=== PATIENT | female | born 1935 | race Caucasian/White ===

== ENCOUNTER 2018-11-28 08:38 | Emergency (ER) | payer MEDICARE, MEDICAID ==
[~2018-11-28] VITALS: Ht 167.6 cm; Wt 62.3 kg
[~2018-11-28 08:38] MED LIST: ATEN50TA2 PO; LEVO75TA7 PO; METH2.5T PO; RIZA10TA24 PO; VERA120T9 PO
--- NOTE | 2018-11-28 09:10 | NUR ---
pt has multiple skin abrasions to fingers and on her right elbow. superficial
[2018-11-28] MEDS ORDERED: HYDROcodone/acetaminophen 10/325mg tab PO ONE (11:40)
[2018-11-28] MEDS ORDERED: HYDR-3965 PO (11:53)
[2018-11-28 12:16] VITALS: BP 153/84
== END 2018-11-28 12:17 | disposition home or self-care (01) ==
LOC: ER 08:38
DX: S32.591A Other specified fracture of right pubis, initial encounter for closed fracture (principal); S32.511A Fracture of superior rim of right pubis, initial encounter for closed fracture; S09.90XA Unspecified injury of head, initial encounter; S50.311A Abrasion of right elbow, initial encounter; S60.511A Abrasion of right hand, initial encounter; G43.909 Migraine, unspecified, not intractable, without status migrainosus; I10 Essential (primary) hypertension; M06.9 Rheumatoid arthritis, unspecified; Z60.2 Problems related to living alone; Z79.899 Other long term (current) drug therapy; Z88.1 Allergy status to other antibiotic agents; W01.10XA Fall on same level from slipping, tripping and stumbling with subsequent striking against unspecified object, initial encounter; Y93.01 Activity, walking, marching and hiking; Y92.89 Other specified places as the place of occurrence of the external cause; Y99.8 Other external cause status
CPT/HCPCS: 70450; 73502; 73552; 99284

== ENCOUNTER 2018-12-25 14:56 | Outpatient (CLI) | payer MEDICARE, MEDICAID | END 2018-12-25 16:50 | disposition home or self-care (01) | LOC: ORTHO 14:56 | PROVIDERS: ATTEND Orthopaedic Surgery | DX: S32.591D Other specified fracture of right pubis, subsequent encounter for fracture with routine healing (principal); M06.9 Rheumatoid arthritis, unspecified; W01.0XXD Fall on same level from slipping, tripping and stumbling without subsequent striking against object, subsequent encounter | CPT/HCPCS: 73502; G0463 ==

== ENCOUNTER 2021-05-24 14:00 | Emergency (ER) | payer MEDICARE, MEDICAID ==
[~2021-05-24] VITALS: Ht 170.2 cm; Wt 65.0 kg
[~2021-05-24 14:00] MED LIST changes: +VERA120T86 PO; -VERA120T9 PO
--- NOTE | 2021-05-24 15:37 | NUR ---
Provider in room with pt. Daughter also in room.
[2021-05-24 15:41] VITALS: BP 174/91
[2021-05-24] MEDS ORDERED: LISI10TA27 PO (16:02)
== END 2021-05-24 16:10 | disposition home or self-care (01) ==
LOC: ER 14:00
DX: L03.115 Cellulitis of right lower limb (principal); I50.9 Heart failure, unspecified; G43.909 Migraine, unspecified, not intractable, without status migrainosus; G30.9 Alzheimer's disease, unspecified; F02.80 Dementia in other diseases classified elsewhere, unspecified severity, without behavioral disturbance, psychotic disturbance, mood disturbance, and anxiety; I10 Essential (primary) hypertension; M06.9 Rheumatoid arthritis, unspecified; Z72.89 Other problems related to lifestyle; Z60.2 Problems related to living alone; Z88.1 Allergy status to other antibiotic agents; Z79.899 Other long term (current) drug therapy
CPT/HCPCS: 99284

== ENCOUNTER 2021-07-28 12:26 | Emergency (ER) | payer MEDICARE, MEDICAID ==
[~2021-07-28] VITALS: Ht 165.1 cm; Wt 65.9 kg
[~2021-07-28 12:26] MED LIST changes: +LISI10TA27 PO
--- NOTE | 2021-07-28 13:30 | NUR ---
PT UP TO BSC WITH STANDBY ASSISTANCE. SMALL SAMPLE OF URINE SENT TO LAB.
--- NOTE | 2021-07-28 13:47 | NUR ---
PT TO XRAY VIA WHEELCHAIR.
--- NOTE | 2021-07-28 13:55 | NUR ---
returned from xray without incident.
[2021-07-28 14:21] LABS: CLARITY,URINE CLEAR (Clear); COLOR,URINE YELLOW (Yellow); GLUCOSE, URINE NEGATIVE (Neg); KETONES,URINE NEGATIVE (Neg); LEUKOCYTE ESTERASE ,URINE LARGE (Neg); NITRITES, URINE NEGATIVE (Neg); OCCULT BLOOD,URINE NEGATIVE (Neg); PH,URINE 7.5 (4.8-8.0); PROTEIN,URINE NEGATIVE (Neg); UROBILINOGEN,URINE 0.2 E.U/dL (0.2-1.0)
[2021-07-28 14:27] LABS: UA COLLECTION TYPE CLN CATCH MIDSTREAM
[2021-07-28 14:33] LABS: SQUAMOUS EPITHELIAL CELL,UR MODERATE /LPF (FEW)
[2021-07-28 14:35] LABS: WBC CLUMPS,URINE MANY /HPF (NEGATIVE)
[2021-07-28 14:37] LABS: WBC,URINE 20-30 /HPF (0-4)
[2021-07-28] MEDS ORDERED: NA P133E4 RC (14:37)
[2021-07-28] MEDS ORDERED: POLY119P2 PO (14:37)
[2021-07-28 14:38] LABS: BACTERIA,URINE 1+ /HPF (Neg)
[2021-07-28 14:40] LABS: RBC,URINE 0-2 /HPF (0-2); TRANSITIONAL EPI CELLS,URINE MODERATE /HPF
--- NOTE | 2021-07-28 14:45 | NUR ---
pt wheeled to restroom, no incidents.
[2021-07-28 15:03] VITALS: BP 126/88
== END 2021-07-28 15:12 | disposition home or self-care (01) ==
LOC: ER 12:26
DX: K59.00 Constipation, unspecified (principal); R11.0 Nausea; R10.84 Generalized abdominal pain; G43.909 Migraine, unspecified, not intractable, without status migrainosus; I10 Essential (primary) hypertension; Z72.89 Other problems related to lifestyle; Z60.2 Problems related to living alone; Z88.1 Allergy status to other antibiotic agents; Z79.899 Other long term (current) drug therapy
CPT/HCPCS: 74018; 81001; 87077; 87088; 87186; 99284

== ENCOUNTER 2021-08-03 11:05 | Outpatient (CLI) | payer MEDICARE, MEDICAID ==
[~2021-08-03 11:05] MED LIST changes: +POLY119P2 PO
== END 2021-08-03 23:59 | disposition home or self-care (01) ==
LOC: RAD 11:05
PROVIDERS: ATTEND Nurse Practitioner Family
DX: R94.01 Abnormal electroencephalogram [EEG] (principal); F03.90 Unspecified dementia, unspecified severity, without behavioral disturbance, psychotic disturbance, mood disturbance, and anxiety; R44.3 Hallucinations, unspecified
CPT/HCPCS: 95816

== ENCOUNTER 2021-08-10 21:03 | Inpatient (IN) | payer MEDICARE, MEDICAID ==
[~2021-08-10] VITALS: Ht 165.1 cm; Wt 60.5 kg
[~2021-08-10 21:03] MED LIST changes: +temazepam 15mg capsule PO PRN
[2021-08-10] MEDS ORDERED: CefTRIAXone 2gm/NS 100ml IVPB 100 ML IV ONE (21:10)
[2021-08-10] MEDS ORDERED: normal saline 1000ML IV soln IV ONE (21:10)
[2021-08-10 21:45] LABS: BASOPHILS % (AUTO) 0.2 % (0-1); EOSINOPHILS # (AUTO) 0.1 X10'3 (0-0.9); HEMATOCRIT 33.9 % (35.0-45.0); HEMOGLOBIN 11.4 g/dl (12.0-16.0); LYMPHOCYTES # (AUTO) 0.4 X10'3 (1.1-4.8); LYMPHOCYTES % (AUTO) 7.7 % (21-51); MEAN CORPUSCULAR HEMOGLOBIN 31.9 PG (27.0-31.0); MEAN CORPUSCULAR HGB CONC 33.6 g/dL (33.0-36.5); MEAN CORPUSCULAR VOLUME 94.9 FL (78-98); MEAN PLATELET VOLUME 7.6 FL (7.4-10.4); MONOCYTES # (AUTO) 0.1 X10'3 (0-0.9); MONOCYTES % (AUTO) 1.7 % (2-12); NEUTROPHILS # (AUTO) 5.2 X10'3 (1.8-7.7); NEUTROPHILS % (AUTO) 89.4 % (42-75); PLATELET COUNT 257 X10'3 (140-440); RED BLOOD COUNT 3.58 X10'6 (4.20-5.60); RED CELL DISTRIBUTION WIDTH 14.4 % (11.5-14.5); WHITE BLOOD COUNT 5.8 X10'3 (4.5-11.0)
[2021-08-10 21:51] LABS: ALANINE AMINOTRANSFERASE 17 U/L (12-78); ALBUMIN 3.2 G/DL (3.4-5.0); ALBUMIN/GLOBULIN RATIO 0.9 (1.1-1.5); ALKALINE PHOSPHATASE 136 IU/L (46-116); ANION GAP 6 (8-16); ASPARTATE AMINO TRANSFERASE 20 U/L (10-37); BLOOD UREA NITROGEN 19 MG/DL (7-18); BUN/CREATININE RATIO 21.3 (6.6-38.0); C-REACTIVE PROTEIN 5.79 MG/DL (0.0-0.5); CALCIUM 8.7 MG/DL (8.5-10.1); CHLORIDE 89 MMOL/L (99-107); CREATININE 0.89 MG/DL (0.40-0.90); GLUCOSE 109 MG/DL (70-104); POTASSIUM 3.4 MMOL/L (3.5-5.1); SODIUM 127 MMOL/L (135-145); TOTAL CARBON DIOXIDE 31.8 MMOL/L (24-32); TOTAL PROTEIN 6.8 G/DL (6.4-8.2); eGFR 60 ML/MIN
[2021-08-10] MEDS ORDERED: acetaminophen 325mg tablet PO PRN ×2 (23:10)
[2021-08-10] MEDS ORDERED: morphine 2 MG/ML inj. syringe IV PRN ×2 (23:10)
[2021-08-10] MEDS ORDERED: acetaminophen 650mg rectal suppository RC PRN (23:10)
[2021-08-10] MEDS ORDERED: HYDROcodone/acetaminophen 5mg/325mg tablet PO PRN (23:10)
[2021-08-10] MEDS ORDERED: ondansetron/PF 4mg/2ml inj IV PRN (23:10)
[2021-08-10] MEDS ORDERED: mag hydrox/Alum hydrox/simeth 30ml oral suspension PO PRN (23:10)
[2021-08-10] MEDS ORDERED: magnesium hydroxide 30ml (MOM) UD suspension PO PRN (23:10)
[2021-08-10] MEDS ORDERED: diphenhydrAMINE 50 mg/ml inj IV PRN (23:10)
[2021-08-10] MEDS ORDERED: normal saline 1000ml 1,000 ML IV SCH (23:10)
[2021-08-10] MEDS ORDERED: bisacodyl 10mg suppository rectal RC PRN (23:10)
[2021-08-10] MEDS ORDERED: diphenhydrAMINE 25mg capsule PO PRN (23:10)
[2021-08-10] MEDS ORDERED: ondansetron 4mg rapidly disintigrating tab PO PRN (23:10)
--- NOTE | 2021-08-10 23:14 | NUR ---
PT ROOMED TO BED 16. ASSUMED CARE OF PT. TRIAGED PT. ORDERS PREVIOUSLY PLACED BY PROVIDER.
[2021-08-10] MEDS ORDERED: magnesium 2GM in 50ml NS 50 ML IV PRN (23:15)
[2021-08-10] MEDS ORDERED: magnesium Cl slow-release 64mg tablet PO PRN (23:15)
[2021-08-10] MEDS ORDERED: potassium CL 10mEq/100ml bag 100 ML IV PRN (23:15)
[2021-08-10] MEDS ORDERED: magnesium 4gm in 100ml NS 100 ML IV PRN (23:15)
[2021-08-10] MEDS ORDERED: POTASSIUM BICARB 20meq eff tab 20 MEQ TABLET.EFF PO PRN (23:15)
[2021-08-10 23:33] LABS: APTT 28 SECONDS (22-32)
[2021-08-10 23:37] LABS: HEMOGLOBIN A1C 5.7 % (4.5-6.2)
[2021-08-10 23:52] LABS: MAGNESIUM 1.9 MG/DL (1.5-2.4); PHOSPHORUS 3.9 MG/DL (2.3-4.5)
--- NOTE | 2021-08-11 00:05 | NUR ---
PT A DIFFICULT STICK. SOFIYA HOLGUIN PLACED IV
[2021-08-11 01:52] LABS: BASOPHILS % (AUTO) 0.4 % (0-1); EOSINOPHILS % (AUTO) 0.8 % (0-6); HEMATOCRIT 30.5 % (35.0-45.0); HEMOGLOBIN 10.3 g/dl (12.0-16.0); LYMPHOCYTES # (AUTO) 0.6 X10'3 (1.1-4.8); LYMPHOCYTES % (AUTO) 10.6 % (21-51); MEAN CORPUSCULAR HEMOGLOBIN 32.2 PG (27.0-31.0); MEAN CORPUSCULAR HGB CONC 33.9 g/dL (33.0-36.5); MEAN CORPUSCULAR VOLUME 94.9 FL (78-98); MEAN PLATELET VOLUME 7.6 FL (7.4-10.4); MONOCYTES # (AUTO) 0.1 X10'3 (0-0.9); NEUTROPHILS # (AUTO) 4.8 X10'3 (1.8-7.7); NEUTROPHILS % (AUTO) 86.2 % (42-75); PLATELET COUNT 204 X10'3 (140-440); RED BLOOD COUNT 3.21 X10'6 (4.20-5.60); RED CELL DISTRIBUTION WIDTH 14.4 % (11.5-14.5); WHITE BLOOD COUNT 5.5 X10'3 (4.5-11.0)
[2021-08-11] MEDS ORDERED: VERA120T19 PO (01:52)
[2021-08-11] MEDS ORDERED: ACET-1059 PO (01:57)
[2021-08-11] MEDS ORDERED: METH2.5T PO (02:09)
[2021-08-11] MEDS ORDERED: THY60T PO (02:09)
[2021-08-11] MEDS ORDERED: OXYB5TAB16 PO (02:09)
[2021-08-11 02:11] LABS: ALANINE AMINOTRANSFERASE 11 U/L (12-78); ALBUMIN 2.6 G/DL (3.4-5.0); ALBUMIN/GLOBULIN RATIO 0.8 (1.1-1.5); ALKALINE PHOSPHATASE 112 IU/L (46-116); ANION GAP 9 (8-16); ASPARTATE AMINO TRANSFERASE 16 U/L (10-37); BILIRUBIN,TOTAL 0.6 MG/DL (0.1-1.0); BLOOD UREA NITROGEN 17 MG/DL (7-18); BUN/CREATININE RATIO 24.6 (6.6-38.0); CALCIUM 8.3 MG/DL (8.5-10.1); CHLORIDE 93 MMOL/L (99-107); CHOL/HDL RATIO 2.3 (0.00-4.99); CHOLESTEROL 124 MG/DL (0-200); CREATININE 0.69 MG/DL (0.40-0.90); GLUCOSE 106 MG/DL (70-104); HDL CHOLESTEROL 53 MG/DL (35-60); LDL CHOLESTEROL 60 MG/DL (50-100); MAGNESIUM 1.8 MG/DL (1.5-2.4); POTASSIUM 3.4 MMOL/L (3.5-5.1); SODIUM 132 MMOL/L (135-145); TOTAL CARBON DIOXIDE 29.6 MMOL/L (24-32); TOTAL PROTEIN 5.9 G/DL (6.4-8.2); TRIGLYCERIDES 40 MG/DL (20-135); eGFR 81 ML/MIN
[2021-08-11 02:57] LABS: CLARITY,URINE CLEAR (Clear); COLOR,URINE YELLOW (Yellow); GLUCOSE, URINE NEGATIVE (Neg); KETONES,URINE NEGATIVE (Neg); LEUKOCYTE ESTERASE ,URINE LARGE (Neg); NITRITES, URINE NEGATIVE (Neg); OCCULT BLOOD,URINE LARGE (Neg); PROTEIN,URINE NEGATIVE (Neg); UROBILINOGEN,URINE 0.2 E.U/dL (0.2-1.0)
[2021-08-11 03:30] LABS: UA COLLECTION TYPE NON-SPECIFIED
[2021-08-11 03:33] LABS: BACTERIA,URINE 2+ /HPF (Neg); RBC,URINE 0-2 /HPF (0-2); SQUAMOUS EPITHELIAL CELL,UR FEW /LPF (FEW); TRANSITIONAL EPI CELLS,URINE FEW /HPF; WBC,URINE 50-100 /HPF (0-4)
--- NOTE | 2021-08-11 03:44 | NUR ---
SPOKE TO DR VILLEGAS OVER PHONE CONCERNING TWO ISSUES. FIRST, PT'S HEART RHYTHM IS IN AFIB WITH A RATE JUMPING BETWEEN HIGH 90S AND 130S. DR VILLEGAS GAVE TELEPHONE ORDER FOR CARDIZEM 10MG IV TO BE GIVEN NOW; MONITOR FOR 1 HR; IF NO IMPROVEMENT, GIVE A SECOND CARDIZEM 10 MG IV; MONITOR FOR ANOTHER HOUR; IF NO IMPROVEMENT, CALL FOR A CARDIZEM DRIP. DR VILLEGAS ALSO GAVE A TELEPHONE ORDER FOR LOVENOX 60 MG BID. MEDICATION ORDERS REPEATED BACK FOR ACCURACY. SECOND ISSUE, I REPORTED PT'S UTI. DR VILLEGAS GAVE TELEPHONE ORDER TO ADD ROCEPHIN 1 GRAM DAILY TO ANTIBIOTICS GIVEN.
[2021-08-11] MEDS ORDERED: diltiazem 5mg/ml 5ml inj. IV ONE ×2 (03:50→04:55)
--- NOTE | 2021-08-11 04:16 | NUR ---
CALLED DR VILLEGAS CONCERNING PT ALSO HAVING HEPARIN BID DAILY ORDERED. HE REQUESTED TO DISCONTINUE HEPARIN SQ BID DAILY AND MAINTAIN LOVENOX ORDERS.
[2021-08-11] MEDS ORDERED: POLY17PO10 PO (05:17)
[2021-08-11] MEDS ORDERED: ATEN50TA PO (05:17)
[2021-08-11] MEDS ORDERED: VERA80TA7 PO (05:17)
[2021-08-11] MEDS ORDERED: THYR90TA PO (05:17)
[2021-08-11] MEDS ORDERED: UBRO100T PO (05:17)
--- NOTE | 2021-08-11 06:30 | NUR ---
first contact with pt, found sleeping supine in bed. rr even and unlabored, no distress noted. pt awaiting bed assignment.
[2021-08-11] MEDS: pantoprazole 40mg Tablet.DR PO SCH (07:36)
[2021-08-11] MEDS: enoxaparin 60mg/0.6ml syringe SUBCUT SCH ×2 (07:36→19:57)
[2021-08-11] MEDS: POTASSIUM BICARB 20meq eff tab 20 MEQ TABLET.EFF PO PRN ×3 (07:50→23:36)
[2021-08-11] MEDS: docusate sod 100mg capsule PO SCH ×2 (07:50→19:54)
[2021-08-11] MEDS: K and/or MAG REPLACEMENT MC SCH ×2 (07:50→19:54)
[2021-08-11] MEDS ORDERED: cefTRIAXone 1g/NS 100ml IVPB 100 ML IV SCH (08:00)
[2021-08-11] MEDS ORDERED: heparin, porcine 5000 units/ml vial SQ SCH (08:00)
[2021-08-11] MEDS ORDERED: furosemide 10 MG/1 ML 10ml inj IV SCH (08:00)
--- NOTE | 2021-08-11 08:29 | NUR ---
paged dr. beth regarding elevated hr and urine culture results from 07/28. awaiting page.
[2021-08-11] MEDS: ceFAZolin/D5W- 1GM premix 50 ML IV SCH ×2 (08:30→19:50)
[2021-08-11] MEDS ORDERED: atenolol 50mg tablet PO ONE (09:30)
--- NOTE | 2021-08-11 09:30 | NUR ---
dr. beth at bedside. verbal order for 50mg of atenolol, will carry out.
--- NOTE | 2021-08-11 10:38 | NUR ---
Heels floated off gurney at this time per mail carrier and clerk recommendations.
[2021-08-11] MEDS ORDERED: UBROGEPANT 100 MG PO PRN (10:55)
[2021-08-11] MEDS ORDERED: acetaminophen w/codeine (30MG) #3 tablet PO PRN (10:55)
--- NOTE | 2021-08-11 11:10 | NUR ---
PAGER ID: [phone] MESSAGE: [id number] coming up from ED. was in fib with RVR up to 140s, now in high 80s after atenolol. do you want on tele or no? odalys [id number]
--- NOTE | 2021-08-11 11:33 | NUR ---
telephone report to SOFIYA Shah.
[2021-08-11 18:00] VITALS: BP 111/62
--- NOTE | 2021-08-11 18:29 | NUR ---
Problems reprioritized. Patient report given, questions answered & plan of care reviewed with SOFIYA Everett.
--- NOTE | 2021-08-11 18:38 | NUR ---
Patient in room ORTH[facility] 4015. I have received report from Alyssa ARRIAZA and had the opportunity to ask questions and assume patient care.
[2021-08-11] MEDS: oxybutynin 5mg tablet PO SCH (19:54)
[2021-08-11] MEDS: furosemide 20 MG/2 ML vial IV SCH (20:00)
[2021-08-11 20:01] VITALS: BP 99/57
[2021-08-11 22:00] VITALS: BP 132/54
[2021-08-12 05:00] VITALS: BP 147/66
--- NOTE | 2021-08-12 06:00 | NUR ---
Patient in room ORTHO 4015b. I have received report from SOFIYA Everett and had the opportunity to ask questions and assume patient care.
--- NOTE | 2021-08-12 06:01 | NUR ---
Problems reprioritized. Patient report given, questions answered & plan of care reviewed with Radha ARRIAZA.
[2021-08-12 06:37] LABS: BASOPHILS % (AUTO) 0.6 % (0-1); EOSINOPHILS # (AUTO) 0.1 X10'3 (0-0.9); EOSINOPHILS % (AUTO) 2.4 % (0-6); HEMATOCRIT 30.2 % (35.0-45.0); HEMOGLOBIN 10.3 g/dl (12.0-16.0); LYMPHOCYTES # (AUTO) 0.5 X10'3 (1.1-4.8); LYMPHOCYTES % (AUTO) 15.1 % (21-51); MEAN CORPUSCULAR HEMOGLOBIN 32.1 PG (27.0-31.0); MEAN CORPUSCULAR VOLUME 94.5 FL (78-98); MONOCYTES # (AUTO) 0.1 X10'3 (0-0.9); MONOCYTES % (AUTO) 4.3 % (2-12); NEUTROPHILS # (AUTO) 2.6 X10'3 (1.8-7.7); NEUTROPHILS % (AUTO) 77.6 % (42-75); PLATELET COUNT 189 X10'3 (140-440); RED BLOOD COUNT 3.19 X10'6 (4.20-5.60); RED CELL DISTRIBUTION WIDTH 14.1 % (11.5-14.5); WHITE BLOOD COUNT 3.4 X10'3 (4.5-11.0)
[2021-08-12 06:45] LABS: ALANINE AMINOTRANSFERASE 11 U/L (12-78); ALBUMIN 2.5 G/DL (3.4-5.0); ALBUMIN/GLOBULIN RATIO 0.8 (1.1-1.5); ALKALINE PHOSPHATASE 112 IU/L (46-116); ANION GAP 7 (8-16); ASPARTATE AMINO TRANSFERASE 27 U/L (10-37); BILIRUBIN,TOTAL 0.7 MG/DL (0.1-1.0); BLOOD UREA NITROGEN 11 MG/DL (7-18); CALCIUM 8.3 MG/DL (8.5-10.1); CHLORIDE 92 MMOL/L (99-107); CREATININE 0.58 MG/DL (0.40-0.90); GLUCOSE 91 MG/DL (70-104); MAGNESIUM 1.8 MG/DL (1.5-2.4); POTASSIUM 3.8 MMOL/L (3.5-5.1); SODIUM 129 MMOL/L (135-145); TOTAL CARBON DIOXIDE 30.3 MMOL/L (24-32); TOTAL PROTEIN 5.7 G/DL (6.4-8.2); eGFR > 90 ML/MIN
[2021-08-12] MEDS ORDERED: enoxaparin 60mg/0.6ml syringe SUBCUT SCH ×2 (08:00→20:00)
[2021-08-12] MEDS: K and/or MAG REPLACEMENT MC SCH ×2 (08:00→20:00)
[2021-08-12] MEDS: polyethylene glycol 3350 17gm powd pack PO SCH (08:00)
[2021-08-12] MEDS: thyroid, pork 30mg tablet PO SCH (08:54)
[2021-08-12] MEDS: pantoprazole 40mg Tablet.DR PO SCH (08:54)
[2021-08-12] MEDS: docusate sod 100mg capsule PO SCH ×2 (08:58→19:21)
[2021-08-12] MEDS: ceFAZolin/D5W- 1GM premix 50 ML IV SCH ×2 (09:19→19:22)
[2021-08-12] MEDS: atenolol 50mg tablet PO SCH (09:48)
[2021-08-12] MEDS: lisinopril 10 MG tablet PO SCH (09:49)
[2021-08-12] MEDS: furosemide 20 MG/2 ML vial IV SCH ×2 (09:55→19:22)
[2021-08-12 10:00] VITALS: BP 101/57
--- NOTE | 2021-08-12 10:00 | NUR ---
Pt needs reminding to only get OOB or up from toilet/chair w/ assistance by staff. Pt was instructed to stay on toilet and pull the cord which was in reach. Pt was discovered standing in the bathroom after voiding and "tidying" the bathroom. Bed alarm audible and on when rtn'd back to bed.
--- NOTE | 2021-08-12 10:07 | NUR ---
Dr Davis at the bedside. aware of pt's meds delayed d/t low BP this am. told pt she will likely go home tomorrow.
[2021-08-12] MEDS: oxybutynin 5mg tablet PO SCH ×2 (12:44→19:21)
--- NOTE | 2021-08-12 12:47 | NUR ---
After lunch pt stated she had a migraine headache coming on. Ubrelvy administered as ordered prn.
--- NOTE | 2021-08-12 13:49 | NUR ---
Pages out to for Lovenox order clarification. Rtn call pending.
[2021-08-12 14:00] VITALS: BP 112/53
--- NOTE | 2021-08-12 14:02 | NUR ---
With pt's permission I spoke to her daughter in law, Geetha Olmstead. Reneesaid that migraines run in the "females in her family (pt's)" and including the patient they have "stroke like symptoms" with migrains. Geetha described slurred speech and confusion, but not weakness.
[2021-08-12 17:00] VITALS: BP 127/61
--- NOTE | 2021-08-12 17:45 | NUR ---
Pt sitting up in bed eating dinner, and stated she slept well this afternoon and now her migraine pain is minimal. She states she is well rested and generally "feels better".
--- NOTE | 2021-08-12 18:53 | NUR ---
Patient in room ORTH[facility] 4015 B. I have received report from Lupe ARRIAZA and had the opportunity to ask questions and assume patient care. Pt is resting comfortably in bed. no s/s of distress or c/o pain. BLL, call light within reach, frequently used items in reach, frequent rounding, will continue to monitor.
[2021-08-12 19:38] VITALS: BP 109/66
[2021-08-12 22:00] VITALS: BP 100/56
[2021-08-13 06:00] VITALS: BP 127/61
--- NOTE | 2021-08-13 06:42 | NUR ---
Problems reprioritized. Patient report given, questions answered & plan of care reviewed with Yessica ARRIAZA.
[2021-08-13 06:46] LABS: BASOPHILS % (AUTO) 0.4 % (0-1); EOSINOPHILS # (AUTO) 0.1 X10'3 (0-0.9); EOSINOPHILS % (AUTO) 2.9 % (0-6); HEMOGLOBIN 10.9 g/dl (12.0-16.0); LYMPHOCYTES # (AUTO) 0.7 X10'3 (1.1-4.8); MEAN CORPUSCULAR HEMOGLOBIN 32.6 PG (27.0-31.0); MEAN CORPUSCULAR HGB CONC 34.2 g/dL (33.0-36.5); MEAN CORPUSCULAR VOLUME 95.4 FL (78-98); MEAN PLATELET VOLUME 8.1 FL (7.4-10.4); MONOCYTES # (AUTO) 0.2 X10'3 (0-0.9); MONOCYTES % (AUTO) 4.7 % (2-12); NEUTROPHILS # (AUTO) 2.9 X10'3 (1.8-7.7); PLATELET COUNT 178 X10'3 (140-440); RED BLOOD COUNT 3.36 X10'6 (4.20-5.60); WHITE BLOOD COUNT 3.8 X10'3 (4.5-11.0)
--- NOTE | 2021-08-13 06:46 | NUR ---
Patient in room ORTH[facility] 4015. I have received report from SOFIYA Bragg and had the opportunity to ask questions and assume patient care.
[2021-08-13 07:02] LABS: ALANINE AMINOTRANSFERASE 12 U/L (12-78); ALBUMIN 2.6 G/DL (3.4-5.0); ALBUMIN/GLOBULIN RATIO 0.8 (1.1-1.5); ALKALINE PHOSPHATASE 112 IU/L (46-116); ANION GAP 10 (8-16); ASPARTATE AMINO TRANSFERASE 25 U/L (10-37); BILIRUBIN,TOTAL 0.7 MG/DL (0.1-1.0); BLOOD UREA NITROGEN 11 MG/DL (7-18); BUN/CREATININE RATIO 19.6 (6.6-38.0); CALCIUM 8.3 MG/DL (8.5-10.1); CHLORIDE 90 MMOL/L (99-107); CREATININE 0.56 MG/DL (0.40-0.90); GLUCOSE 84 MG/DL (70-104); MAGNESIUM 1.7 MG/DL (1.5-2.4); SODIUM 132 MMOL/L (135-145); TOTAL CARBON DIOXIDE 32.4 MMOL/L (24-32); TOTAL PROTEIN 5.9 G/DL (6.4-8.2); eGFR > 90 ML/MIN
--- NOTE | 2021-08-13 07:11 | NUR ---
PAGER ID: [phone] MESSAGE: Yessica [phone] RE: Yani Rivera room 4015B Potassium 3.0. Will treat as prescribed.
[2021-08-13] MEDS: thyroid, pork 30mg tablet PO SCH (07:37)
[2021-08-13] MEDS: oxybutynin 5mg tablet PO SCH (07:37)
[2021-08-13] MEDS: pantoprazole 40mg Tablet.DR PO SCH (07:37)
[2021-08-13 07:38] VITALS: BP_SYST 127
[2021-08-13] MEDS: docusate sod 100mg capsule PO SCH (07:38)
[2021-08-13] MEDS: atenolol 50mg tablet PO SCH (07:38)
[2021-08-13] MEDS: lisinopril 10 MG tablet PO SCH (07:38)
[2021-08-13] MEDS: furosemide 20 MG/2 ML vial IV SCH (07:39)
[2021-08-13] MEDS: ceFAZolin/D5W- 1GM premix 50 ML IV SCH (07:40)
[2021-08-13] MEDS: polyethylene glycol 3350 17gm powd pack PO SCH (07:40)
[2021-08-13] MEDS: K and/or MAG REPLACEMENT MC SCH (08:00)
[2021-08-13] MEDS ORDERED: CEPH-585 PO (10:20)
--- NOTE | 2021-08-13 11:41 | NUR ---
Left message with Enedina (daughter) about making arrangements for pickup as patient is being discharged today.
--- NOTE | 2021-08-13 15:18 | NUR ---
Patient was discharged at 1430 with instructions and verbalizing understanding of instructions, in wheelchair accompanied by nursing staff. Her daughter was waiting downstairs to take her home via private vehicle. All lines and tubes have been removed including PIV and tele monitor. Patient was educated on new medications and medications that need to be continues, and all questions were answered. Patient will set up follow up appointment with her PCP. Patient is stable and appropriate for discharge.
[2021-08-14] MEDS ORDERED: CIPR-202 PO (15:56)
== END 2021-08-13 14:25 | disposition home or self-care (01) | DRG 602 ==
LOC: ER 21:03 → ED HOLD 23:13 → EDBEDREQ 08-11 10:49 → ORTHO 4S 08-11 11:45
PROVIDERS: ADMIT Family Medicine; ATTEND Family Medicine
DX: L03.116 Cellulitis of left lower limb (principal); I50.33 Acute on chronic diastolic (congestive) heart failure; I13.0 Hypertensive heart and chronic kidney disease with heart failure and stage 1 through stage 4 chronic kidney disease, or unspecified chronic kidney disease; E87.1 Hypo-osmolality and hyponatremia; N17.9 Acute kidney failure, unspecified; N39.0 Urinary tract infection, site not specified; L03.115 Cellulitis of right lower limb; E03.9 Hypothyroidism, unspecified; E87.6 Hypokalemia; I48.91 Unspecified atrial fibrillation; G43.909 Migraine, unspecified, not intractable, without status migrainosus; M06.9 Rheumatoid arthritis, unspecified; N18.9 Chronic kidney disease, unspecified; Z79.899 Other long term (current) drug therapy; Z88.8 Allergy status to other drugs, medicaments and biological substances
CPT/HCPCS: 36415; 71045; 71250; 80053; 80061; 81001; 83036; 83605; 83735; 83880; 84100; 84145; 84439; 84443; 84480; 85025; 85610; 85651; 85730; 86140; 87040; 87077; 87081; 87088; 87186; 93306; 93970; 96374; 97116; 97161; 97530; 99285; A6250; A6258; A6449; G0378; J0690; J0696; J1650; J1940; J2270; J2405; J3490; J7030

== ENCOUNTER 2021-08-16 13:57 | Emergency (ER) | payer MEDICARE, MEDICAID ==
[~2021-08-16] VITALS: Ht 165.1 cm; Wt 60.5 kg
[~2021-08-16 13:57] MED LIST changes: +ACET-1059 PO; +ATEN50TA PO; -ATEN50TA2 PO; +CEPH-585 PO; +CIPR-202 PO; -LEVO75TA7 PO; +OXYB5TAB16 PO; -POLY119P2 PO; +POLY17PO10 PO; -RIZA10TA24 PO; +THYR90TA PO; +UBRO100T PO; -VERA120T86 PO; +VERA80TA7 PO; -temazepam 15mg capsule PO PRN
[2021-08-16 16:13] VITALS: BP 117/96
--- NOTE | 2021-08-16 16:22 | NUR ---
called daughter patrice who states she will be here in 25 min to chart picker pt and take back home
== END 2021-08-16 17:17 | disposition home or self-care (01) ==
LOC: ER 13:57
DX: S09.90XA Unspecified injury of head, initial encounter (principal); G43.909 Migraine, unspecified, not intractable, without status migrainosus; I10 Essential (primary) hypertension; Z88.1 Allergy status to other antibiotic agents; W19.XXXA Unspecified fall, initial encounter; Y93.89 Activity, other specified; Y92.89 Other specified places as the place of occurrence of the external cause; Y99.8 Other external cause status
CPT/HCPCS: 70450; 99284